=== PATIENT | female | born 1955 | race Caucasian/White ===

== ENCOUNTER 2019-04-14 07:22 | Emergency (ER) | payer MEDICAID | END 2019-04-14 07:47 | disposition home or self-care (01) | LOC: E/R 07:22 | DX: S80.212A Abrasion, left knee, initial encounter (principal); I10 Essential (primary) hypertension; W01.0XXA Fall on same level from slipping, tripping and stumbling without subsequent striking against object, initial encounter; Y92.9 Unspecified place or not applicable | CPT/HCPCS: 99282; Z7502 ==